=== PATIENT | female | born 1995 | race American Indian/Alaskan Native ===

== ENCOUNTER 2021-03-06 12:41 | Emergency (ER) | payer SELFPAY ==
[2021-03-06] MEDS ORDERED: IPRATROPIUM 0.02% NEBU 2.5 ML IH ONE ×2 (13:05→17:15)
[2021-03-06] MEDS ORDERED: ALBUTEROL 2.5 MG/3 ML NEBU IH ONE ×2 (13:05→17:15)
--- NOTE | 2021-03-06 13:23 | Emergency Department Report ---
HPI - General Chief Complaint: Dyspnea/Respdistress Time Seen by Provider: 03/06/21 12:54 - HPI HPI: MSE 6 The patient is a 25-year-old female present with a chief complaint of shortness of breath. Patient states her symptoms began yesterday with a cough occasionally productive of yellow or white sputum. Patient states last night her shortness of breath worsened. The patient states she was not vaccinated against Covid. Patient denies sick contacts. Patient denies loss of sense of taste or smell. The patient states she is uncertain if she's had a fever at home ED Past Medical Hx - Surgical History Past Surgical History?: No - Family History Family history: no significant - Social History Smoking Status: Never Smoker Substance Use Type: None (Denies illicit drug use) ED Review of Systems ROS: Stated complaint: SHORTNESS OF BREATH Other details as noted in HPI Constitutional: fever (?) Eyes: denies: eye pain ENT: denies: throat pain Respiratory: cough, shortness of breath Cardiovascular: denies: chest pain Endocrine: no symptoms reported Gastrointestinal: denies: nausea, vomiting Genitourinary: denies: dysuria Musculoskeletal: denies: back pain Neurological: denies: headache Physical Exam - Physical Exam Vital Signs: Vital Signs 03/06/21 12:47 Temperature 98.1 F Pulse Rate 102 H Respiratory 16 Rate Blood Pressure 149/84 [Right] O2 Sat by Pulse 98 Oximetry Physical Exam: GENERAL: The patient is well-developed well-nourished female sitting on str etcher exhibiting increased work of breathing. [] HEENT: Normocephalic. Atraumatic. Extraocular motions are intact. Patient has moist mucous membranes. NECK: Supple. Trachea midline CHEST/LUNGS: Clear to auscultation. The patient is tachypneic with increased work of breathing HEART/CARDIOVASCULAR: Regular. There is no tachycardia. There is no gallop rub or murmur. ABDOMEN: Abdomen is soft, nontender. Patient has normal bowel sounds. There is no abdominal distention. SKIN: There is no rash. There is no edema. There is no diaphoresis. NEURO: The patient is awake, alert, and oriented. The patient is cooperative. The patient has no focal neurologic deficits. The patient has normal speech MUSCULOSKELETAL: There is no evidence of acute injury. ED Course Vital Signs 03/06/21 12:47 Temperature 98.1 F Pulse Rate 102 H Respiratory 16 Rate Blood Pressure 149/84 [Right] O2 Sat by Pulse 98 Oximetry - Reevaluation(s) Reevaluation #1: 03/06/21 17:17 Patient continues to be tachypneic. CT shows bronchitis possible pneumonitis. Awaiting another neb. If patient remains tachypneic will admit for further treatment ED Medical Decision Making - Lab Data Result diagrams: 03/06/21 13:31 03/06/21 13:31 Laboratory Tests 03/06/21 03/06/21 03/06/21 13:29 13:31 13:31 WBC 9.1 RBC 4.20 Hgb 11.3 Hct 35.4 MCV 84 MCH 27 L MCHC 32 RDW 15.4 H Plt Count 428 Lymph % (Auto) 13.0 L Blackford % (Auto) 6.5 Eos % (Auto) 2.9 Baso % (Auto) 0.5 Lymph # (Auto) 1.2 [place]ford # (Auto) 0.6 Eos # (Auto) 0.3 Baso # (Auto) 0.0 Seg Neutrophils % 77.1 H Seg Neutrophils # 7.0 PT INR D-Dimer 237.47 H Sodium 138 Potassium 4.1 Chloride 104.8 Carbon Dioxide 22 Anion Gap 15 BUN 13 Creatinine 0.7 Estimated GFR > 60 BUN/Creatinine Ratio 19 Glucose 95 Calcium 8.8 HCG, Qual 03/06/21 03/06/21 13:31 13:31 WBC RBC Hgb Hct MCV MCH MCHC RDW Plt Count Lymph % (Auto) Blackford % (Auto) Eos % (Auto) Baso % (Auto) Lymph # (Auto) [place] # (Auto) Eos # (Auto) Baso # (Auto) Seg Neutrophils % Seg Neutrophils # PT 12.6 INR 0.85 L D-Dimer Sodium Potassium Chloride Carbon Dioxide Anion Gap BUN Creatinine Estimated GFR BUN/Creatinine Ratio Glucose Calcium HCG, Qual Negative - Radiology Data Radiology results: report reviewed (Chest x-ray, CT chest), image reviewed (Chest x-ray, CT chest) interpreted by me: Chest x-ray-no definite focal infiltrates, no pneumothorax [facility] [address] [place] [address] XRay Report Signed Patient: COLTON BISWAS MR#: [id number] 27 : 1995 Acc t:[id number] Age/Sex: 25 / F ADM Date: 03/06/21 Loc: ED Attending Dr: Ordering Physician: MISSAEL GUZMAN MD Date of Service: 03/06/21 Procedure(s): XR chest routine 2V Accession Number(s): [id number] cc: MISSAEL GUZMAN MD Fluoro Time In Minutes: CHEST 2 VIEWS INDICATION / CLINICAL INFORMATION: Shortness of breath, cough. COMPARISON: None available. FINDINGS: SUPPORT DEVICES: None. HEART / MEDIASTINUM: No significant abnormality. LUNGS / PLEURA: No significant pulmonary or pleural abnormality. No pneumothorax. ADDITIONAL FINDINGS: No significant additional findings. IMPRESSION: 1. No acute findings. Signer Name: Bennett Oden MD Signed: 03/06/2021 2:41 PM Workstation Name: [id number] Transcribed By: KEYONA Dictated By: Bennett Oden MD Electronically Authenticated By: Bennett Oden MD Signed Date/Time: 03/06/211440 DD/ 40 TD/TT: [place] [address] Cat Scan Report Signed Patient: COLTON BISWAS MR#: [id number] 27 : 1995 Acct:[id number] Age/Sex: 25 / F ADM Date: 03/06/21 Loc: ED Attending Dr: Ordering Physician: MISSAEL GUZMAN MD Date of Service: 03/06/21 Procedure(s): CT angio chest Accession Number(s): [id number] cc: MISSAEL GUZMAN MD CTA CHEST WITH IV CONTRAST INDICATION: Shortness of breath. Chest pain TECHNIQUE: Axial CT images were obtained through the chest after injection of 100 mL Omnipaque 350 IV contrast. 3 plane MIP reconstructions were produced. All CT scans at this location are performed using CT dose reduction for ALARA by means of automated exposure control. COMPARISON: None available. FINDINGS: PULMONARY ARTERIES: No pulmonary emboli. AORTA AND ARTERIES: No acute abnormality. MEDIASTINUM: No mass, lymphadenopathy or other significant abnormality. The heart is normal in size without a pericardial effusion. The trachea and main bronchi are patent and normal in caliber. LUNGS: Focal areas of groundglass density within the left lower lobe mostly anteriorly. There is some bronchial wall thickening identified bilaterally but most significantly within the lower lobes and the right middle lobe. ADDITIONAL FINDINGS: None. UPPER ABDOMEN: No acute findings. BONES: No significant osseous abnormality. IMPRESSION: 1. No CT evidence for pulmonary embolism. 2. Evidence of bilateral bronchitis. Groundglass density within the left lower lobe suspicious for infectious pneumonitis. Signer Name: Terell Duke MD Signed: 03/06/2021 4:56 PM Workstation Name: [id number] Transcribed By: BC Dictated By: Terell Duke MD Electronically Authenticated By: Terell Duke MD Signed Date/Time: 03/06/211655 DD/ 48 TD/TT: Print Cancel - Differential Diagnosis Pneumonia, bronchitis, COVID-19, Critical care attestation.: If time is entered above; I have spent that time in minutes in the direct care of this critically ill patient, excluding procedure time. ED Disposition Clinical Impression: Acute bronchitis, Pneumonitis Disposition: 07 LEFT AGAINST MEDICAL ADVICE Is pt being admited?: No Does the pt Need Aspirin: No Condition: Undetermined Instructions: Acute Bronchitis (ED) Referrals: PRIMARY CARE, [Primary Care Provider] - 3-5 Days Forms: AMA Form Time of Disposition: 18:17 (Patient eloped before I could speak with her)
[2021-03-06 14:12] LABS: Basophils % (Auto) 0.5 % (0.0-1.8); Eosinophils # (Auto) 0.3 K/mm3 (0.0-0.4); Eosinophils % (Auto) 2.9 % (0.0-4.3); Hematocrit 35.4 % (30.3-42.9); Hemoglobin 11.3 gm/dl (10.1-14.3); Lymphocytes # (Auto) 1.2 K/mm3 (1.2-5.4); Mean Corpuscular HGB Conc 32 % (30-34); Mean Corpuscular Volume 84 fl (79-97); Monocytes # (Auto) 0.6 K/mm3 (0.0-0.8); Monocytes % (Auto) 6.5 % (0.0-7.3); Platelet Count 428 K/mm3 (140-440); Red Cell Distribution Width 15.4 % (13.2-15.2)
[2021-03-06 14:13] LABS: INR 0.85 (0.87-1.13)
[2021-03-06 14:15] LABS: Blood Urea Nitrogen 13 mg/dL (7-17); Calcium 8.8 mg/dL (8.4-10.2); Hemolysis Index 1
[2021-03-06 14:18] LABS: BUN/Creatinine Ratio 19
--- NOTE | 2021-03-06 14:46 | XRay Report ---
CHEST 2 VIEWS INDICATION / CLINICAL INFORMATION: Shortness of breath, cough. COMPARISON: None available. FINDINGS: SUPPORT DEVICES: None. HEART / MEDIASTINUM: No significant abnormality. LUNGS / PLEURA: No significant pulmonary or pleural abnormality. No pneumothorax. ADDITIONAL FINDINGS: No significant additional findings. IMPRESSION: 1. No acute findings. Signer Name: Bennett Oden MD Signed: 03/06/2021 2:41 PM Workstation Name: [id number]
--- NOTE | 2021-03-06 17:00 | Cat Scan Report ---
CTA CHEST WITH IV CONTRAST INDICATION: Shortness of breath. Chest pain TECHNIQUE: Axial CT images were obtained through the chest after injection of 100 mL Omnipaque 350 IV contrast. 3 plane MIP reconstructions were produced. All CT scans at this location are performed using CT dose reduction for ALARA by means of automated exposure control. COMPARISON: None available. FINDINGS: PULMONARY ARTERIES: No pulmonary emboli. AORTA AND ARTERIES: No acute abnormality. MEDIASTINUM: No mass, lymphadenopathy or other significant abnormality. The heart is normal in size w ithout a pericardial effusion. The trachea and main bronchi are patent and normal in caliber. LUNGS: Focal areas of groundglass density within the left lower lobe mostly anteriorly. There is sujit e bronchial wall thickening identified bilaterally but most significantly within the lower lobes and the right middle lobe. ADDITIONAL FINDINGS: None. UPPER ABDOMEN: No acute findings. BONES: No significant osseous abnormality. IMPRESSION: 1. No CT evidence for pulmonary embolism. 2. Evidence of bilateral bronchitis. Groundglass density within the left lower lobe suspicious for in fectious pneumonitis. Signer Name: Terell Duke MD Signed: 03/06/2021 4:56 PM Workstation Name: [id number]
[2021-03-06] MEDS ORDERED: AZITHROMYCIN/NS 500 MG/250 ML 500 MG/250 ML BAG IV ONE (17:16)
[2021-03-06] MEDS ORDERED: cefTRIAXone/NS 1 GM/50 ML 1 GM/50 ML BAG IV ONE (17:16)
[2021-03-06 17:47] VITALS: BP 131/87
[2021-03-06] MEDS ORDERED: METOCLOPRAMIDE 10 MG/2 ML INJ IV ONE (17:48)
== END 2021-03-06 18:37 | disposition left against medical advice (07) ==
LOC: ED 12:41
DX: J20.9 Acute bronchitis, unspecified (principal); J69.8 Pneumonitis due to inhalation of other solids and liquids
CPT/HCPCS: 36415; 71046; 71275; 80048; 84703; 85025; 85379; 85610; 87040; 94640; 96365; 96368; 96375; 99285; J0456; J0696; J2765; Q9967; 94644